=== PATIENT | male | born 1965 | race Caucasian/White ===

== ENCOUNTER 2017-09-17 15:46 | Emergency (ER) | payer OTHER ==
[~2017-09-17] VITALS: Ht 170.2 cm; Wt 76.2 kg
[~2017-09-17 15:46] MED LIST: CYCLOBENZAPRINE5 MG PO; CYMBALTA30 MG PO; HYDROCODONE-AP1 EAC6 PO; KEFLEX500 MG PO; NAPROSYN500 MG PO; NORCO 5-325 TA1 EACH PO; PERCOCET 5-3251 EACH; UNICOMPLEX M TA1 TA1 PO; ZOLOFT25 MG PO
[2017-09-17 17:08] VITALS: BP 168/91
== END 2017-09-17 17:09 | disposition home or self-care (01) ==
LOC: M.ERS 15:46
DX: S06.0X0A Concussion without loss of consciousness, initial encounter (principal); Z98.890 Other specified postprocedural states; W22.8XXA Striking against or struck by other objects, initial encounter; Y93.89 Activity, other specified; Y92.89 Other specified places as the place of occurrence of the external cause; Y99.0 Civilian activity done for income or pay

== ENCOUNTER 2017-11-19 14:52 | Emergency (ER) | payer OTHER ==
[~2017-11-19] VITALS: Ht 170.2 cm; Wt 74.8 kg
[2017-11-19] MEDS ORDERED: CYMBALTA30 MG PO (15:18)
[2017-11-19] MEDS ORDERED: KEFLEX500 M1 PO (16:40)
[2017-11-19] MEDS ORDERED: ACETAMINOPHEN-1 EAC1 PO (16:40)
[2017-11-19] MEDS ORDERED: IBUPROFEN 800800 MG PO (16:40)
[2017-11-19 16:56] VITALS: BP 139/96
== END 2017-11-19 16:57 | disposition home or self-care (01) ==
LOC: M.ERS 14:52
DX: S61.412A Laceration without foreign body of left hand, initial encounter (principal); F32.9 Major depressive disorder, single episode, unspecified; W26.0XXA Contact with knife, initial encounter; Y93.89 Activity, other specified; Y92.098 Other place in other non-institutional residence as the place of occurrence of the external cause; Y99.0 Civilian activity done for income or pay

== ENCOUNTER 2017-12-14 16:46 | Emergency (ER) | payer OTHER ==
[~2017-12-14] VITALS: Ht 170.2 cm; Wt 74.8 kg
[~2017-12-14 16:46] MED LIST changes: +ACETAMINOPHEN-1 EAC1 PO; +IBUPROFEN 800800 MG PO; +KEFLEX500 M1 PO
[2017-12-14] MEDS ORDERED: NAPROSYN500 MG PO (17:30)
[2017-12-14 17:55] VITALS: BP 151/99
== END 2017-12-14 17:57 | disposition home or self-care (01) ==
LOC: M.ERS 16:46
DX: S46.812A Strain of other muscles, fascia and tendons at shoulder and upper arm level, left arm, initial encounter (principal); F32.9 Major depressive disorder, single episode, unspecified; X50.3XXA Overexertion from repetitive movements, initial encounter; Y93.89 Activity, other specified; Y92.096 Garden or yard of other non-institutional residence as the place of occurrence of the external cause; Y99.8 Other external cause status